=== PATIENT | female | born 1980 | race Caucasian/White ===

== ENCOUNTER 2018-02-11 07:04 | Day surgery (SDC) | payer OTHER ==
[~2018-02-11] VITALS: Ht 165.1 cm; Wt 87.1 kg
[~2018-02-11 07:04] MED LIST: AMOXICILLIN875 MG OR; ANUSOL HC25 MG RE; AUGMENTIN875TAB PO; BENADRYL 50MG C50 MG OR; BENZONATATE200 MG PO; CALCIUM500 MG/D OR; CETIRIZINE10 MG PO; DEXILANT60 MG PO; DOXYCYC MONO100 M3 PO; DOXYCYCLINE HY100 MG PO; FLUARIX QUADRIV1 INJ IM; GLUMETZA1000 MG OR; LEVOTHYROXIN100 MCG PO; LEVOXYL200 MCG OR; LIPITOR20 MG PO; MELATONIN5 MG PO; METFORMIN1000 MG OR; MULTIVITAMI1 PO; MUPIROCIN2 % EX; OMEPRAZOLE20 MG PO; PRE-NATAL OR; SYNTHROID200 MCG PO; TRAZODONE100 MG PO; VENLAFAXINE HC150 M1 PO; VENTOLIN HFA IN; XANAX0.25 MG PO; ZANTAC150 M1 PO; ZOLOFT100 MG PO; ZOLOFT50 MG PO
[2018-02-11 10:25] VITALS: BP 118/77
[2018-02-11] MEDS ORDERED: IBUPROFEN600 MG PO (10:40)
== END 2018-02-11 10:50 | disposition home or self-care (01) | DRG 607 ==
LOC: ORM 07:04
PROVIDERS: ATTEND Surgery
PROC: 0HB0XZZ Excision of Scalp Skin, External Approach (ICD-10-PCS; principal; 2018-02-11)
DX: L72.11 Pilar cyst (principal)